=== PATIENT | female | born 2000 | race Caucasian/White ===

== ENCOUNTER 2023-08-24 14:18 | Emergency (ER) | payer BC, SELFPAY ==
[2023-08-24 14:27] VITALS: BP 127/90; PULSE 97; RESP 24; TEMP 36.3; O2SAT 98; BMI 28.3
== END 2023-08-24 15:05 | disposition left against medical advice (07) ==
LOC: ED 15:03
DX: Z53.21 Procedure and treatment not carried out due to patient leaving prior to being seen by health care provider (principal)